=== PATIENT | male | born 1955 | race Caucasian/White ===

== ENCOUNTER 2017-05-25 08:25 | Observation (INO) | payer BC ==
[2017-05-25] MEDS ORDERED: Sodium Chloride 0.9% 1000 ML 1,000 ML IV STA (08:42)
--- NOTE | 2017-05-25 08:51 | ERPHSYRPT ---
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 He felt dizzines syesterday feeling like woozy feeling, no spinning. No headache. He has cough, fever, chills. BP was low yest and today as low as 70 at [employer] per nurse. He felt like he was going to pass out this AM and was confused and could not remember things so was brought to ER. Feels lightheaded when upright. Started feeling ill yesterday. ALL: PCN Social: smoker ILL: [place], [place], CABG 2001 Timing/Duration: yesterday Severity: moderate, severe Allergies/Adverse Reactions: Penicillins Allergy (Verified 05/25/17 08:52) Home Medications: Aspirin 1 tab DAILY 12/21/15 [History] Carvedilol 12.5 mg [Coreg 12.5 mg] 1 tab BID 12/21/15 [History] Clopidogrel Bisulfate 75 mg [PLAVIX 75 MG Tablet] 1 tab DAILY 12/21/15 [ History] Fenofibrate 67 mg HS 12/21/15 [History] Isosorbide Mononitrate [Isosorbide Mononitrate ER] 60 mg DAILY 12/21/15 [History ] Losartan/Hydrochlorothiazide [Losartan-Hctz 100-12.5 mg Tab] 1 each PO DAILY [History] Niacin 1 tab BID 12/21/15 [History] Dupo-3 Fatty Acids/Fish Oil [Fish Oil 1,000 mg Softgel] 1 ea BID 12/21/15 [ History] Simvastatin 40 mg DAILY 12/21/15 [History] Hx Influenza Vaccination/Date Given: No - Review of Systems Constitutional: Fever, Chills, Fatigue, Malaise, Weakness, Other (confusion) Eyes: No Symptoms Ears, Nose, & Throat: No Throat Pain Respiratory: Cough Cardiac: No Chest Pain Abdominal/Gastrointestinal: No Abdominal Pain, No Vomiting, No Diarrhea Genitourinary Symptoms: No Dysuria Skin: No Rash Neurological: No Headache All Other Systems: Reviewed and Negative - Past Medical History Pertinent Past Medical History: Yes Cardiac History: Coronary Artery Disease, Myocardial Infarction ([place]) GI Medical History: Hernia Other Medical History: cardiac stents back problems - Past Surgical History Cardiac: Angioplasty, CABG, Cardiac Stent Gastrointestinal: Hernia Repair Musculoskeletal: Orthopedic Surgery Other Surgical History: shoulder surgeery - Social History Smoking Status: Current every day smoker Exposure to second hand smoke: No Drug Use: none Patient Lives Alone: No - Nursing Vital Signs Nursing Vital Signs: Initial Vital Signs O2 Sat by Pulse Oximetry 97 05/25/17 08:56 Pain Scale Pain Intensity 0 - Physical Exam General Appearance: alert Eye Exam: PERRL/EOMI Ears, Nose, Throat Exam: normal ENT inspection, dry mucous membranes Neck Exam: normal inspection, non-tender, supple, No meningismus Respiratory Exam: rhonchi, wheezing Cardiovascular Exam: regular rate/rhythm, No murmur Gastrointestinal/Abdomen Exam: soft, No tenderness, No distention Back Exam: normal inspection Extremity Exam: normal inspection, normal range of motion Neurologic Exam: alert, oriented x 3, cooperative, 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 tested, normal mood/affect, nml cerebellar function, nml station & gait, sensation nml, other (no focal deficits), No motor deficits Skin Exam: warm, dry, No rash - Course Nursing assessment & vital signs reviewed: Yes EKG Interpreted by Me: RATE (76), Sinus Rhythm, NORMAL AXIS, Non-specific ST Changes - Radiology Exams cxr X-ray Interpretation: Teleradiologist Report (stable nonacute chest with chronic features) - CT Exams head CT Interpretation: Tele-radiologist Report (stable right basal ganglia remoate lacunar infarct, no new abnl, paranasal sinus disease) Ordered Tests: Active Orders 24 hr Category Date Time Status Enrollment Management Vice President STAT Care 05/25/17 08:42 Active Clean Catch Urine Specimen STAT Care 05/25/17 08:42 Active EKG-ER Only STAT Care 05/25/17 08:42 Active IV Insertion STAT Care 05/25/17 08:42 Active Orthostatic Vital Signs STAT Care 05/25/17 09:30 Active Pulse Oximetry (ED) STAT Care 05/25/17 08:42 Active CHEST 1 VIEW (PORTABLE) Stat Exams 05/25/17 08:42 Completed HEAD WITHOUT CONTRAST [CT] Stat Exams 05/25/17 08:44 Completed BLOOD CULTURE Stat Lab 05/25/17 08:59 Received CBC W DIFF Stat Lab 05/25/17 08:59 Completed CMP Stat Lab 05/25/17 08:59 Completed CULTURE,URINE Stat Lab 05/25/17 08:42 Ordered Glucose,Critical Care Urgent Lab 05/25/17 08:43 Completed Lactic Acid Stat Lab 05/25/17 08:42 Completed PROTIME WITH INR Stat Lab 05/25/17 08:59 Completed PTT Stat Lab 05/25/17 08:59 Completed TROPONIN Q3H Lab 05/25/17 08:59 Completed TROPONIN Q3H Lab 05/25/17 11:45 Ordered TROPONIN Q3H Lab 05/25/17 14:45 Ordered TROPONIN Q3H Lab 05/25/17 17:45 Ordered TROPONIN Q3H Lab 05/25/17 20:45 Ordered UA W/ MICROSCOPIC Stat Lab 05/25/17 08:42 Completed VENOUS BLOOD GAS Urgent Lab 05/25/17 08:43 Completed Respiratory Nebulizer STAT RT 05/25/17 09:04 Completed Respiratory Nebulizer STAT RT 05/25/17 10:27 Ordered Medication Summary Discontinued Medications Generic Name Dose Route Start Last Admin Trade Name Freq PRN Reason Stop Dose Admin Albuterol/Ipratropium 3 ml 05/25/17 09:04 05/25/17 09:15 Duoneb 0.5-3 Mg/3 Ml Neb IH 05/25/17 09:05 3 ml STAT ONE Administration Albuterol/Ipratropium Confirm 05/25/17 09:13 Duoneb 0.5-3 Mg/3 Ml Neb Administered 05/25/17 09:14 Dose 3 ml IH .STK-MED ONE Sodium Chloride 1,000 mls @ 999 mls/hr 05/25/17 08:42 05/25/17 09:13 Sodium Chloride 0.9% 1000 Ml IV 05/25/17 09:42 999 mls/hr .Q1H1M STA Administration Sodium Chloride Confirm 05/25/17 09:12 Sodium Chloride 0.9% 1000 Ml Administered 05/25/17 09:13 Dose 1,000 mls @ ud .ROUTE .STK-MED ONE Lab/Rad Data: Laboratory Result Diagrams 05/25/17 08:59 05/25/17 08:59 Laboratory Results 05/25/17 05/25/17 05/25/17 Range/Units 08:59 08:59 08:59 WBC (4.0-10.5) K/mm3 RBC (4.1-5.6) M/mm3 Hgb (12.5-18.0) gm/dl Hct (42-50) % MCV (78-100) fl MCH (26-32) pg MCHC (32-36) g/dl RDW (11.5-14.0) % Plt Count (150-450) K/mm3 MPV (6-9.5) fl Gran % (36.0-66.0) % Lymphocytes % (24.0-44.0) % Monocytes % (0.0-12.0) % Eosinophils % (0.00-5.0) % Basophils % (0.0-0.4) % Basophils # (0-0.4) INR 1.16 (0.8-3.0) APTT 33.4 (24.1-36.1) SECONDS VBG pH (7.32-7.42) VBG pCO2 at Pat Temp (42-55) mm/Hg VBG pO2 at Pat Temp (25-40) mm/Hg VBG HCO3 (22-28) meq/L VBG O2 Sat (Preet) (95-100) VBG Base Excess (-2.0-2.0) VBG Hemoglobin VBG Carboxyhemoglobin (0.0-6.9) % T HGB POC Potassium (3.5-5.1) Glucose (70-110) Sodium (136-145) mEq/L Potassium (3.5-5.1) mEq/L Chloride (98-107) mEq/L Carbon Dioxide (21-32) mEq/L Anion Gap (5-15) MEQ/L BUN (9-20) mg/dL Creatinine (0.55-1.30) mg/dl Estimated GFR ML/MIN Lactic Acid (0.4-2.0) Calcium (8.5-10.1) mg/dL Total Bilirubin (0.2-1.0) mg/dL AST (15-37) U/L ALT (12-78) U/L Alkaline Phosphatase (46-116) U/L Troponin I < 0.017 (0.000-0.056) ng/ml Serum Total Protein (6.4-8.2) gm/dL Albumin (3.4-5.0) g/dL Ur Collection Type Urine Color (YELLOW) Urine Appearance (CLEAR) Urine pH (5-6) Ur Specific [place] (1.005-1.025) Urine Protein (Negative) Urine Ketones (NEGATIVE) Urine Blood (0-5) Abdi/ul Urine Nitrite (NEGATIVE) Urine Bilirubin (NEGATIVE) Urine Urobilinogen (0-1) mg/dL Ur Leukocyte Esterase (NEGATIVE) Urine Microscopic RBC (0-2) /HPF Urine Microscopic WBC (0-5) /HPF Ur Epithelial Cells (FEW) /HPF Urine Bacteria (NEGATIVE) /HPF Urine Glucose (NEGATIVE) mg/dL Influenza Type A Ag POSITIVE (NEGATIVE) Influenza Type B Ag NEGATIVE (NEGATIVE) RSV (PCR) NEGATIVE (Negative) Specimen Received 05/25/17 05/25/17 05/25/17 Range/Units 08:59 08:59 08:43 WBC 5.7 (4.0-10.5) K/mm3 RBC 5.51 (4.1-5.6) M/mm3 Hgb 15.8 (12.5-18.0) gm/dl Hct 45.4 (42-50) % MCV 82.4 (78-100) fl MCH 28.7 (26-32) pg MCHC 34.8 (32-36) g/dl RDW 13.1 (11.5-14.0) % Plt Count 149 L (150-450) K/mm3 MPV 10.5 H (6-9.5) fl Gran % 74.3 H (36.0-66.0) % Lymphocytes % 13.0 L (24.0-44.0) % Monocytes % 11.7 (0.0-12.0) % Eosinophils % 0.5 (0.00-5.0) % Basophils % 0.5 (0.0-0.4) % Basophils # 0.03 (0-0.4) INR (0.8-3.0) APTT (24.1-36.1) SECONDS VBG pH 7.46 H (7.32-7.42) VBG pCO2 at Pat Temp 38 L (42-55) mm/Hg VBG pO2 at Pat Temp 46 H (25-40) mm/Hg VBG HCO3 27.0 (22-28) meq/L VBG O2 Sat (Preet) 89.5 L (95-100) VBG Base Excess 3.1 H (-2.0-2.0) VBG Hemoglobin 16.8 VBG Carboxyhemoglobin 4.8 (0.0-6.9) % T HGB POC Potassium 3.3 L (3.5-5.1) Glucose 168 H 178 H (70-110) Sodium 133 L (136-145) mEq/L Potassium 3.2 L (3.5-5.1) mEq/L Chloride 98 (98-107) mEq/L Carbon Dioxide 26.5 (21-32) mEq/L Anion Gap 11.5 (5-15) MEQ/L BUN 20 (9-20) mg/dL Creatinine 1.71 H (0.55-1.30) mg/dl Estimated GFR 43 ML/MIN Lactic Acid (0.4-2.0) Calcium 8.7 (8.5-10.1) mg/dL Total Bilirubin 0.50 (0.2-1.0) mg/dL AST 25 (15-37) U/L ALT 24 (12-78) U/L Alkaline Phosphatase 59 (46-116) U/L Troponin I (0.000-0.056) ng/ml Serum Total Protein 6.8 (6.4-8.2) gm/dL Albumin 3.2 L (3.4-5.0) g/dL Ur Collection Type Urine Color (YELLOW) Urine Appearance (CLEAR) Urine pH (5-6) Ur Specific [place] (1.005-1.025) Urine Protein (Negative) Urine Ketones (NEGATIVE) Urine Blood (0-5) Abdi/ul Urine Nitrite (NEGATIVE) Urine Bilirubin (NEGATIVE) Urine Urobilinogen (0-1) mg/dL Ur Leukocyte Esterase (NEGATIVE) Urine Microscopic RBC (0-2) /HPF Urine Microscopic WBC (0-5) /HPF Ur Epithelial Cells (FEW) /HPF Urine Bacteria (NEGATIVE) /HPF Urine Glucose (NEGATIVE) mg/dL Influenza Type A Ag (NEGATIVE) Influenza Type B Ag (NEGATIVE) RSV (PCR) (Negative) Specimen Received 05/25/17 05/25/17 Range/Units 08:42 08:42 WBC (4.0-10.5) K/mm3 RBC (4.1-5.6) M/mm3 Hgb (12.5-18.0) gm/dl Hct (42-50) % MCV (78-100) fl MCH (26-32) pg MCHC (32-36) g/dl RDW (11.5-14.0) % Plt Count (150-450) K/mm3 MPV (6-9.5) fl Gran % (36.0-66.0) % Lymphocytes % (24.0-44.0) % Monocytes % (0.0-12.0) % Eosinophils % (0.00-5.0) % Basophils % (0.0-0.4) % Basophils # (0-0.4) INR (0.8-3.0) APTT (24.1-36.1) SECONDS VBG pH (7.32-7.42) VBG pCO2 at Pat Temp (42-55) mm/Hg VBG pO2 at Pat Temp (25-40) mm/Hg VBG HCO3 (22-28) meq/L VBG O2 Sat (Preet) (95-100) VBG Base Excess (-2.0-2.0) VBG Hemoglobin VBG Carboxyhemoglobin (0.0-6.9) % T HGB POC Potassium (3.5-5.1) Glucose (70-110) Sodium (136-145) mEq/L Potassium (3.5-5.1) mEq/L Chloride (98-107) mEq/L Carbon Dioxide (21-32) mEq/L Anion Gap (5-15) MEQ/L BUN (9-20) mg/dL Creatinine (0.55-1.30) mg/dl Estimated GFR ML/MIN Lactic Acid 1.3 (0.4-2.0) Calcium (8.5-10.1) mg/dL Total Bilirubin (0.2-1.0) mg/dL AST (15-37) U/L ALT (12-78) U/L Alkaline Phosphatase (46-116) U/L Troponin I (0.000-0.056) ng/ml Serum Total Protein (6.4-8.2) gm/dL Albumin (3.4-5.0) g/dL Ur Collection Type CCMS Urine Color YELLOW (YELLOW) Urine Appearance CLEAR (CLEAR) Urine pH 5.0 (5-6) Ur Specific [place] 1.010 (1.005-1.025) Urine Protein TRACE (Negative) Urine Ketones NEGATIVE (NEGATIVE) Urine Blood 50 (0-5) Abdi/ul Urine Nitrite NEGATIVE (NEGATIVE) Urine Bilirubin NEGATIVE (NEGATIVE) Urine Urobilinogen NORMAL (0-1) mg/dL Ur Leukocyte Esterase TRACE (NEGATIVE) Urine Microscopic RBC 5-10 (0-2) /HPF Urine Microscopic WBC 0-2 (0-5) /HPF Ur Epithelial Cells MODERATE (FEW) /HPF Urine Bacteria FEW (NEGATIVE) /HPF Urine Glucose NEGATIVE (NEGATIVE) mg/dL Influenza Type A Ag (NEGATIVE) Influenza Type B Ag (NEGATIVE) RSV (PCR) (Negative) Specimen Received 05/25 1010 - Progress Progress Note: 05/25/17 10:28 Not orthostatic currently. He feels better afte rIVF bolus. Still wheezing on lung exam. Overwhelming sinus drng. Called Dr Mondragon and will place in obs for tamiflu, steroids, IVF. Counseled pt/family regarding: lab results, diagnosis, need for follow-up, rad results, smoking cessation - Departure Time of Disposition: 10:29 Departure Disposition: Observation Clinical Impression: Influenza A, Acute asthmatic bronchitis, Orthostasis, Type 2 diabetes mellitus Condition: Fair Critical Care Time: No Referrals: CYRIL MONDRAGON [Primary Care Provider] -
[2017-05-25 08:56] LABS: VBG BASE EXCESS 3.1 (-2.0-2.0); VBG CARBOXYHEMOGLOBIN 4.8 % T HGB (0.0-6.9); VBG HEMOGLOBIN 16.8; VBG O2 SATURATION 89.5 (95-100); VBG POTASSIUM 3.3 (3.5-5.1); VBG pH 7.46 (7.32-7.42)
[2017-05-25 09:00] LABS: BASOPHIL % 0.5 % (0.0-0.4); Eosinophil % 0.5 % (0.00-5.0); Granulocytes % 74.3 % (36.0-66.0); Mean Cell Volume 82.4 fl (78-100); Mean Corpuscular Hemoglobin 28.7 pg (26-32); Mean Platelet Volume 10.5 fl (6-9.5); Monocytes % 11.7 % (0.0-12.0); Platelet Count 149 K/mm3 (150-450); Red Blood Count 5.51 M/mm3 (4.1-5.6); Red Cell Distribution Width 13.1 % (11.5-14.0); White Blood Count 5.7 K/mm3 (4.0-10.5)
[2017-05-25] MEDS ORDERED: DUONEB 0.5-3 MG/3 ml Neb IH ONE ×2 (09:04→09:13)
[2017-05-25] MEDS ORDERED: Sodium Chloride 0.9% 1000 ML 1,000 ML ONE (09:12)
--- NOTE | 2017-05-25 09:18 | XRAY ---
Indication: Fever. Confusion. Comparison: July 04, 2011. Portable chest remains clear. Heart is not enlarged and again demonstrates previous CABG surgery. Descending aorta remains tortuous. Vascularity normal. Bony thorax intact again with mild degenerative changes. Impression: Stable nonacute chest with chronic features.
--- NOTE | 2017-05-25 09:19 | XRAY ---
Indication: Confusion and fever. Multiple contiguous axial images obtained through the head without contrast. Comparison: August 15, 2013. Ventriculosulcal pattern appears symmetric. Stable tiny right basal ganglia remote lacunar infarct. No acute intracranial hemorrhage, abnormal extra-axial fluid collection, or mass effect. Fourth ventricle is midline without hydrocephalus. Bony calvarium intact. There is now mild mucosal thickening of both ethmoid sinuses with small fluid leveling in the sphenoid sinuses. Mastoid air cells clear. Impression: 1. Stable right basal ganglia remote lacunar infarct. 2. No new/acute intracranial abnormalities. 3. Incidental paranasal sinus disease. CTDI 66.59
[2017-05-25 09:28] LABS: INR 1.16 (0.8-3.0); PROTIME 12.9 SECONDS (8.83-12.87)
[2017-05-25 09:31] LABS: PTT 33.4 SECONDS (24.1-36.1)
[2017-05-25 09:35] LABS: ALBUMIN 3.2 g/dL (3.4-5.0); ANION GAP 11.5 MEQ/L (5-15); BILIRUBIN,TOTAL 0.5 mg/dL (0.2-1.0); Carbon Dioxide 26.5 mEq/L (21-32); Potassium 3.2 mEq/L (3.5-5.1); Total Protein 6.8 gm/dL (6.4-8.2)
[2017-05-25 10:23] LABS: Bilirubin NEGATIVE (NEGATIVE); Blood 50 Ery/ul (0-5); Collection Type CCMS; Glucose NEGATIVE (NEGATIVE); Leukocyte Esterase TRACE (NEGATIVE)
[2017-05-25 10:24] LABS: Bacteria FEW /HPF (NEGATIVE); COMPLETE URINE MICROSCOPIC? YES; Epithelial Cells MODERATE /HPF (FEW); WBC 0-2 /HPF (0-5)
[2017-05-25] MEDS ORDERED: solu-MEDROL 125 MG IV ONE (10:26)
[2017-05-25] MEDS ORDERED: ROCEPHIN 1 Gm-D5w 50 ml Bag** 1 G/50 ML IVPB IV STA (10:26)
[2017-05-25] MEDS ORDERED: PROVENTIL 2.5 MG/3 ML NEB IH ONE ×2 (10:26→10:52)
[2017-05-25] MEDS ORDERED: Tamiflu 75MG Capsule PO ONE ×2 (10:28→10:35)
[2017-05-25] MEDS ORDERED: solu-MEDROL 125 MG ONE (10:33)
[2017-05-25] MEDS ORDERED: ROCEPHIN 1 Gm-D5w 50 ml Bag** 1 G/50 ML IVPB IV ONE (10:33)
[2017-05-25] MEDS ORDERED: NovoLOG Insulin SQ PRN (11:03)
[2017-05-25] MEDS ORDERED: DUONEB 0.5-3 MG/3 ml Neb IH SCH (11:03)
[2017-05-25] MEDS ORDERED: TYLENOL 325 MG PO PRN (11:03)
[2017-05-25] MEDS: Sodium Chloride 0.9% W/ 20 mEq KCl/LITER 1,000 ML IV SCH ×2 (12:38→22:48)
[2017-05-25] MEDS ORDERED: NORCO 7.5/325 MG TAB PO PRN (14:44)
[2017-05-25] MEDS ORDERED: Tussionex Pennkinetic Susp PO PRN (15:10)
[2017-05-25] MEDS: solu-MEDROL 125 MG IV SCH (17:20)
[2017-05-25] MEDS ORDERED: AFRIN NASAL SPRAY NS PRN (19:06)
--- NOTE | 2017-05-25 19:12 | PCM.HP ---
History of Present Illness - Chief Complaint Chief Complaint: Shortness of Breath History of Present Illness: is a 61 year old male pt of mine from [facility] who started coughing 2d ago , then had chills all that night. 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 He started getting "weirder than usual" per his co worker and was found to have a BP in the 80s systolic. He was brought to the ER where he was found to have + Influenza A. He was admitted for IV hydration and po tamiflu. His CXR was initially read as RML infiltrate, but the final reading was no acute findings per radiology. He did have CT head which showed sinus disease so he was started on Rocephin 1g IV daily. Currently he is having "a hot flash" but his main complaint is nasal congestion. - Review of Systems Constitutional: Fever, Chills, Fatigue, Lethargy Respiratory: Cough Abdominal/Gastrointestinal: Diarrhea (chronic) Musculoskeletal: Arthralgias Neurological: Other (altered mental status earlier today) Psychological: No Anxiety, No Depression, No Suicidal Ideations, No Homicidal Ideations All Other Systems: Reviewed and Negative Medications & Allergies Home Medications: Home Medication List Aspirin 1 tab DAILY 12/21/15 [History Confirmed 05/25/17] Carvedilol 12.5 mg [Coreg 12.5 mg] 1 tab BID 12/21/15 [History Confirmed 05/25/17] Clopidogrel Bisulfate 75 mg [PLAVIX 75 MG Tablet] 1 tab DAILY 12/21/15 [ History Confirmed 05/25/17] Fenofibrate 67 mg HS 12/21/15 [History Confirmed 05/25/17] Isosorbide Mononitrate [Isosorbide Mononitrate ER] 60 mg DAILY 12/21/15 [ History Confirmed 05/25/17] Losartan/Hydrochlorothiazide [Losartan-Hctz 100-12.5 mg Tab] 1 each PO DAILY [History Confirmed 05/25/17] Adams-3 Fatty Acids/Fish Oil [Fish Oil 1,000 mg Softgel] 1 ea BID 12/21/15 [ History Confirmed 05/25/17] Simvastatin 40 mg PO DAILY 12/21/15 [History Confirmed 05/25/17] Celecoxib [Celecoxib] 200 mg PO DAILY 05/25/17 [History Confirmed 05/25/17] Hydrocodone Bit/Acetaminophen [Hydrocodon-Acetaminoph 7.5-325] 1 each PO DAILY PRN PRN 05/25/17 [History Confirmed 05/25/17] Allergies/Adverse Reactions: Allergies Allergy/AdvReac Type Severity Reaction Status Date / Time Penicillins Allergy Verified 05/25/17 08:52 - Past Medical History Past Medical History: Yes Cardiac History: Coronary Artery Disease, Myocardial Infarction ([place]) Respiratory History: No Pertinent History Endocrine Medical History: Diabetes Type II GI Medical History: Hernia Comment: cardiac stents back problems - Past Surgical History Past Surgical History: Yes Cardiac History: Angioplasty, CABG, Cardiac Stent GI Surgical History: Hernia Repair Musculskeletal Surgical Hx: Orthopedic Surgery Other Surgical History: shoulder surgeery - Social History Smoking Status: Current every day smoker How long have you smoked: 47 years Exposure to second hand smoke: No Alcohol: Weekly Drug Use: none - Physical Exam Vital Signs: Vital Signs - 24 hr Temp Pulse Resp BP Pulse Ox 05/25/17 16:00 98.8 F 85 20 124/77 94 L 05/25/17 11:40 91 H 18 93 L 05/25/17 11:36 97.6 F 76 18 120/72 93 L 05/25/17 10:50 78 18 92 L 05/25/17 10:11 77 16 106/67 97 05/25/17 09:41 97.6 F 05/25/17 09:40 70 16 103/65 97 05/25/17 09:16 75 18 92 L 05/25/17 09:14 70 16 101/64 97 05/25/17 09:05 87 20 95/55 97 05/25/17 08:56 97 General Appearance: no apparent distress, alert Neurologic Exam: oriented x 3, cooperative Eye Exam: eyes nml inspection Ears, Nose, Throat Exam: moist mucous membranes Neck Exam: normal inspection, non-tender, No lymphadenopathy Respiratory Exam: diminished breath sounds (throughout), wheezing (expiratory, faint), No crackles/rales, No rhonchi Cardiovascular Exam: regular rate/rhythm, normal heart sounds, No murmur Gastrointestinal/Abdomen Exam: soft, No tenderness, No distention, No mass, No guarding, No rebound Back Exam: normal inspection, No rash Extremity Exam: normal inspection, No pedal edema, No swelling Skin Exam: normal color, warm, diaphoresis Results - Labs Lab/Micro Results: Accuchecks Date 05/25/17 Accucheck Value: 254 Accuchecks Date 05/25/17 Accucheck Value: 254 - Other Procedures and Tests Respiratory Therapy 05/25/17 11:43 Respiratory Nebulizer PRN Assessment/Plan (1) Influenza A Current Visit: Yes Status: Acute Assessment & Plan: On Tamiflu. on IV steroids and nebulizers for the wheezing. Code(s): J10.1 - FLU DUE TO OTH IDENT INFLUENZA VIRUS W OTH RESP MANIFEST (2) Altered mental state Current Visit: Yes Status: Resolved Qualifiers: Altered mental status type: disorientation Qualified Code(s): R41.0 - Disorientation, unspecified Assessment & Plan: resolved. Code(s): R41.82 - ALTERED MENTAL STATUS, UNSPECIFIED (3) Hypotension Current Visit: Yes Status: Acute Qualifiers: Hypotension type: other hypotension type Qualified Code(s): I95.89 - Other hypotension Assessment & Plan: Likely due to dehydration and being ill. Much improved, BP in the 120s systolic over the past 8 hours. If his BP stay stable overnight he may be able to d/c home tomorrow. Code(s): I95.9 - HYPOTENSION, UNSPECIFIED (4) Sinusitis Current Visit: Yes Status: Acute Qualifiers: Sinusitis location: maxillary Chronicity: acute Recurrence: not specified as recurrent Qualified Code(s): J01.00 - Acute maxillary sinusitis, unspecified Assessment & Plan: On IV rocephin day #1. 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 Code(s): I10 - ESSENTIAL (PRIMARY) HYPERTENSION
[2017-05-25] MEDS: COREG 12.5 MG PO SCH (21:36)
[2017-05-25] MEDS: Tamiflu 75MG Capsule PO SCH (21:36)
[2017-05-25] MEDS: NovoLOG Insulin SQ PRN (21:37)
[2017-05-26] MEDS: solu-MEDROL 125 MG IV SCH ×2 (00:12→05:42)
[2017-05-26 05:47] LABS: Granulocytes % 87.3 % (36.0-66.0); Lymphocytes % 9.3 % (24.0-44.0); Mean Cell Volume 82.5 fl (78-100); Mean Corpuscular Hemoglobin 28.9 pg (26-32); Mean Platelet Volume 10.6 fl (6-9.5); Monocytes % 3.4 % (0.0-12.0); Platelet Count 158 K/mm3 (150-450); Red Cell Distribution Width 13.1 % (11.5-14.0); White Blood Count 7.7 K/mm3 (4.0-10.5)
[2017-05-26 06:05] LABS: ANION GAP 9.2 MEQ/L (5-15); BLOOD UREA NITROGEN 16 mg/dL (9-20); CHLORIDE 105 mEq/L (98-107); Carbon Dioxide 28.1 mEq/L (21-32); Glucose 183 MG/DL (70-110); MAGNESIUM 1.5 mg/dL (1.8-2.4); Potassium 3.7 mEq/L (3.5-5.1); SODIUM 139 mEq/L (136-145)
[2017-05-26] MEDS ORDERED: AFRIN NASAL SPRAY NS PRN (07:15)
--- NOTE | 2017-05-26 08:44 | PCM.DS ---
Discharge Summary Date of Admission: 05/25/17 10:50 Admitting Physician: CYRIL DIAZ Primary Care Provider: CYRIL DIAZ Allergies Allergies Penicillins Allergy (Verified 05/25/17 08:52) Hospital Summary - Hospital Course Hospital Course: Pt was admitted for Influenza A, had some hypotension and disorientation at work. BP down to 70s systolic. He was admitted, given IV fluids, and treated with tamiflu and rocephin (for sinusitis). He is feeling much better this morning, BP up to the 150s systolic (bp meds were held yesterday). He does complain that he didn't sleep last night and he notes he's been having a fairly persistent erection but denies any discomfort with that. - Vitals & Intake/Output Vital Signs: Vital Signs Temperature 97.5 F 05/26/17 07:18 Pulse Rate 80 05/26/17 07:30 Respiratory Rate 16 05/26/17 07:30 Blood Pressure 145/83 05/26/17 07:18 O2 Sat by Pulse Oximetry 91 L 05/26/17 07:30 Intake & Output: Intake & Output 05/23/17 05/24/17 05/25/17 05/26/17 11:59 11:59 11:59 11:59 Intake Total 2748 Balance 2748 Weight 87.657 kg - Lab Result Diagrams: 05/26/17 05:25 05/26/17 05:25 Lab Results-Last 24 Hrs: Accuchecks Date 05/25/17 Date 05/25/17 Time 21:30 Accucheck Value: 166 Accucheck Value: 205 Accucheck Value: 254 Lab Results-Last 24 Hours 05/26/17 05/26/17 Range/Units 05:25 05:25 WBC 7.7 (4.0-10.5) K/mm3 RBC 5.60 (4.1-5.6) M/mm3 Hgb 16.2 (12.5-18.0) gm/dl Hct 46.2 (42-50) % MCV 82.5 (78-100) fl MCH 28.9 (26-32) pg MCHC 35.1 (32-36) g/dl RDW 13.1 (11.5-14.0) % Plt Count 158 (150-450) K/mm3 MPV 10.6 H (6-9.5) fl Gran % 87.3 H (36.0-66.0) % Lymphocytes % 9.3 L (24.0-44.0) % Monocytes % 3.4 (0.0-12.0) % Eosinophils % 0.0 (0.00-5.0) % Basophils % 0.0 (0.0-0.4) % Basophils # 0 (0-0.4) Sodium 139 (136-145) mEq/L Potassium 3.7 (3.5-5.1) mEq/L Chloride 105 (98-107) mEq/L Carbon Dioxide 28.1 (21-32) mEq/L Anion Gap 9.2 (5-15) MEQ/L BUN 16 (9-20) mg/dL Creatinine 1.01 (0.55-1.30) mg/dl Estimated GFR > 60 ML/MIN Glucose 183 H (70-110) MG/DL Calcium 8.5 (8.5-10.1) mg/dL Magnesium 1.5 L (1.8-2.4) mg/dL Micro Results-Entire Visit: Accuchecks Date 05/25/17 Date 05/25/17 Time 21:30 Accucheck Value: 166 Accucheck Value: 205 Accucheck Value: 254 - Procedures and Test Procedures and Tests throughout Hospitalization: Therapy Orders & Screens 05/25/17 11:43 Respiratory Nebulizer PRN Comment: Diagnosis: Shortness of Breath 05/25/17 11:54 Smoking Cessation Education Comment: Diagnosis: Shortness of Breath Smoking Status: Current every day smoker How long have you smoked: 47 years Have you smoked in the past 12 months: Yes Do you dip or chew tobacco: No Discharge Exam General Appearance: no apparent distress, alert Neurologic Exam: oriented x 3, cooperative Skin Exam: normal color, warm, dry Eye Exam: eyes nml inspection Ears, Nose, Throat Exam: moist mucous membranes Neck Exam: normal inspection Respiratory Exam: normal breath sounds, lungs clear, No crackles/rales, No rhonchi, No wheezing Cardiovascular Exam: regular rate/rhythm, normal heart sounds, No murmur Final Diagnosis/Problem List - Final Discharge Diagnosis/Problem (1) Influenza A Current Visit: Yes Status: Acute Assessment & Plan: On Tamiflu. Improved. Also on IV steroids; will stop those and start po steroids. As long as he is doing well on the po steroids ok to d/c home after supper. Return to work Thursday. (2) Altered mental state Current Visit: Yes Status: Resolved (3) Hypotension Current Visit: Yes Status: Resolved (4) Sinusitis Current Visit: Yes Status: Acute Assessment & Plan: home on po omnicef. (5) Type 2 diabetes mellitus Current Visit: Yes Status: Chronic (6) HTN (hypertension) Current Visit: Yes Status: Chronic (7) Priapism Current Visit: Yes Status: Acute Assessment & Plan: could be related to the Afrin nasal spray - will do u/s to check for ischemic priapism. Would need to see this resolved before discharge. - Discharge Disposition: Home, Self-Care Condition: Fair Prescriptions: New Prednisone 20 mg [Deltasone 20 mg] 20 mg PO DAILY #17 tablet Cefdinir 300 mg [Omnicef 300 mg] 300 mg PO BID #16 capsule Oseltamivir 75 mg [Tamiflu 75MG Capsule] 75 mg PO BID #7 cap Continue Aspirin 1 tab DAILY Carvedilol 12.5 mg [Coreg 12.5 mg] 1 tab BID Fenofibrate 67 mg HS Losartan/Hydrochlorothiazide [Losartan-Hctz 100-12.5 mg Tab] 1 each PO DAILY Isosorbide Mononitrate [Isosorbide Mononitrate ER] 60 mg DAILY Simvastatin 40 mg PO DAILY [employer]-3 Fatty Acids/Fish Oil [Fish Oil 1,000 mg Softgel] 1 ea BID Clopidogrel Bisulfate 75 mg [PLAVIX 75 MG Tablet] 1 tab DAILY Celecoxib 200 mg PO DAILY Hydrocodone Bit/Acetaminophen [Hydrocodon-Acetaminoph 7.5-325] 1 each PO DAILY PRN PRN PRN Reason: Pain Follow up with: CYRIL DIAZ [Primary Care Provider] -
[2017-05-26] MEDS ORDERED: ROCEPHIN 1 Gm-D5w 50 ml Bag** 1 G/50 ML IVPB IV SCH (10:00)
[2017-05-26] MEDS ORDERED: ISOSORBIDE MONONITRATE 60 MG PO SCH (10:00)
[2017-05-26] MEDS ORDERED: ECOTRIN 81 MG PO SCH (10:00)
[2017-05-26] MEDS ORDERED: Imdur 60MG PO SCH (10:00)
[2017-05-26] MEDS ORDERED: DELTASONE 20 MG PO SCH (10:00)
[2017-05-26] MEDS ORDERED: Cozaar 50 MG PO SCH (10:00)
[2017-05-26] MEDS ORDERED: ASPIRIN PO SCH (10:00)
[2017-05-26] MEDS ORDERED: NON-FORMULARY ITEM (Losartan/Hydrochlorothiazide [Losartan-Hctz 100-12.5 Mg Tab] 1 EACH) PO SCH (10:00)
[2017-05-26] MEDS ORDERED: PLAVIX 75 MG Tablet PO SCH (10:00)
[2017-05-26] MEDS ORDERED: hydroDIURIL 25 MG PO SCH (10:00)
[2017-05-26] MEDS: COREG 12.5 MG PO SCH (10:25)
[2017-05-26] MEDS: Tamiflu 75MG Capsule PO SCH (10:25)
[2017-05-26 11:33] VITALS: BP 143/81; PULSE 76; O2SAT 92
[2017-05-26] MEDS: NovoLOG Insulin SQ PRN (11:51)
[2017-05-26] MEDS ORDERED: ZOCOR 20MG PO SCH (22:00)
== END 2017-05-26 15:15 | disposition home or self-care (01) ==
LOC: ED 08:25 → MED SURG 10:50
PROVIDERS: ADMIT Family Medicine; ATTEND Family Medicine
DX: J10.1 Influenza due to other identified influenza virus with other respiratory manifestations (principal); R41.82 Altered mental status, unspecified; I95.9 Hypotension, unspecified; J32.9 Chronic sinusitis, unspecified; I10 Essential (primary) hypertension; N48.30 Priapism, unspecified; I25.810 Atherosclerosis of coronary artery bypass graft(s) without angina pectoris; I25.2 Old myocardial infarction; E11.9 Type 2 diabetes mellitus without complications; Z79.899 Other long term (current) drug therapy; Z72.0 Tobacco use
CPT/HCPCS: 36000; 36415; 70450; 71010; 80048; 80053; 81000; 82805; 82947; 82962; 83036; 83605; 83735; 84484; 85025; 85610; 85730; 87040; 87086; 87631; 93005; 93041; 94640; 94760; 96360; 96365; 96374; 99285; G0378; J0696; J2930; A9270-GY

== ENCOUNTER 2018-03-18 08:06 | Day surgery (SDC) | payer BC ==
[~2018-03-18 08:06] MED LIST: CLINDAMYCIN-D5W 900 MG/50 ML*** 900 MG/50 ML BAG IV SCH; Lactated Ringers 1,000 ML IV ONE; Lactated Ringers 1,000 ML IV SCH; Sensorcaine 0.25% 10 ML ONE
[2018-03-18] MEDS ORDERED: DIPRIVAN 200 MG/20 ML IV ONE (08:07)
[2018-03-18] MEDS ORDERED: Versed 2 MG/2 ML Injection IV ONE (08:07)
[2018-03-18] MEDS ORDERED: ROBINUL IV ONE (08:07)
[2018-03-18] MEDS ORDERED: Quelicin Fliptop 200 MG/10 ML IV ONE (08:07)
[2018-03-18] MEDS ORDERED: Zemuron 100 MG/10 ML IV ONE (08:07)
[2018-03-18] MEDS ORDERED: SUBLIMAZE 250 MCG/5 ML IV ONE (08:07)
[2018-03-18] MEDS ORDERED: MORPHINE SULFATE 10 MG/ML ONE (11:49)
--- NOTE | 2018-03-18 12:55 | OP ---
SURGERY DATE/TIME: 03/18/2018 1045 PREOPERATIVE DIAGNOSIS: Symptomatic umbilical hernia. POSTOPERATIVE DIAGNOSIS: Symptomatic umbilical hernia. PROCEDURE: Primary umbilical herniorrhaphy. SURGEON: Partha Jean-Baptiste M.D. ANESTHESIA: General. COMPLICATIONS: None. CONDITION: Stable. INDICATION: The patient with symptomatic umbilical hernia. DESCRIPTION OF PROCEDURE: Taken to surgery. Routine prep and drape. Transverse incision, 1 cm defect this was freed. Four sutures #0 Prolene were placed and tied in an inversion-like fashion. [id number] 0 Vicryl. Skin closed with 4-0 Vicryl, sterile glue applied. The patient tolerated the procedure satisfactorily.
[2018-03-18 13:21] VITALS: PULSE 59; O2SAT 93
[2018-03-18 13:24] VITALS: BP 127/80
== END 2018-03-18 13:30 | disposition home or self-care (01) ==
LOC: SDC 08:06
PROVIDERS: ATTEND Surgery
DX: K42.9 Umbilical hernia without obstruction or gangrene (principal); I10 Essential (primary) hypertension; E11.9 Type 2 diabetes mellitus without complications; I25.2 Old myocardial infarction; Z95.1 Presence of aortocoronary bypass graft; Z79.4 Long term (current) use of insulin; Z79.899 Other long term (current) drug therapy
CPT/HCPCS: 82962; 94250; J0330; J2250; J2270; J2704; J3010

== ENCOUNTER 2018-10-31 21:24 | Emergency (ER) | payer BC ==
--- NOTE | 2018-10-31 22:12 | ERPHSYRPT ---
- History of Present Illness Time Seen by Provider: 10/31/18 22:09 Historian: patient, family Exam Limitations: no limitations Physician History: left flank and back pain today hx back surgery as well as RI x 3 and CABG no CP or sobreath but pain is shooting down left leg ; no neuro deficit abd is diffusly tender no trauma; Timing/Duration: today Activities at Onset: none Quality: sharpness, stabbing Abdominal Pain Onset Location: generalized abdomen, flank Pain Radiation: flank, groin, back Severity of Pain-Max: moderate Severity of Pain-Current: moderate Modifying Factors: Improves With: movement, vomiting Associated Symptoms: back, nausea, vomiting Previous symptoms: different symptoms, no recent treatment Allergies/Adverse Reactions: Penicillins Allergy (Mild, Verified 10/31/18 22:13) Itching Home Medications: Aspirin 1 tab PO DAILY 12/21/15 [History] Carvedilol 12.5 mg [Coreg 12.5 mg] 1 tab PO DAILY 12/21/15 [History] Clopidogrel Bisulfate 75 mg [PLAVIX 75 MG Tablet] 1 tab PO DAILY 12/21/15 [History] Fenofibrate 67 mg PO HS 12/21/15 [History] Isosorbide Mononitrate [Isosorbide Mononitrate ER] 60 mg PO DAILY 12/21/15 [ History] Losartan/Hydrochlorothiazide [Losartan-Hctz 100-12.5 mg Tab] 1 each PO DAILY [History] [place]-3 Fatty Acids/Fish Oil [Fish Oil 1,000 mg Softgel] 1 ea BID 12/21/15 [ History] Celecoxib 200 mg PO DAILY 05/25/17 [History] Amlodipine Besylate 5 mg [Norvasc 5 mg] 5 mg PO HS 02/26/18 [History] Atorvastatin Calcium [Lipitor] 80 mg PO HS 02/26/18 [History] Metformin HCl 500 mg [Glucophage 500 MG] 250 mg PO BID 02/26/18 [History] Niacin [Niaspan] 1,000 mg PO BID 02/26/18 [History] Nitroglycerin 0.4 mg (Ed) [Nitrostat 0.4 MG (ED)] 0.4 mg SL UD 02/26/18 [ History] Hx Influenza Vaccination/Date Given: No - Review of Systems Constitutional: No Fever, No Chills Eyes: No Symptoms Ears, Nose, & Throat: No Symptoms Respiratory: No Cough, No Dyspnea Cardiac: No Chest Pain, No Edema, No Syncope Abdominal/Gastrointestinal: Abdominal Pain, Nausea, Vomiting, No Diarrhea Genitourinary Symptoms: No Dysuria Musculoskeletal: Back Pain, No Neck Pain Skin: No Rash Neurological: No Dizziness, No Focal Weakness, No Sensory Changes Psychological: No Symptoms Endocrine: No Symptoms All Other Systems: Reviewed and Negative - Past Medical History Pertinent Past Medical History: Yes Neurological History: No Pertinent History ENT History: No Pertinent History Cardiac History: Coronary Artery Disease, High Cholesterol, Hypertension, Myocardial Infarction ([place]) Respiratory History: No Pertinent History Endocrine Medical History: Diabetes Type II Musculoskeletal History: Other GI Medical History: Hernia History: No Pertinent History Psycho-Social History: No Pertinent History Male Reproductive Disorders: No Pertinent History Other Medical History: cardiac stents. back problems- herniated disc - Past Surgical History Past Surgical History: Yes Neuro Surgical History: No Pertinent History Cardiac: Angioplasty, CABG, Cardiac Stent Respiratory: No Pertinent History Gastrointestinal: Hernia Repair Genitourinary: No Pertinent History Musculoskeletal: Orthopedic Surgery Male Surgical History: No Pertinent History Other Surgical History: right shoulder surgery. cyst removed from right shoulder - Social History Smoking Status: Current every day smoker How long have you smoked: 47 years Exposure to second hand smoke: No Drug Use: none Patient Lives Alone: No - Nursing Vital Signs Nursing Vital Signs: Initial Vital Signs Temperature 100.8 F 10/31/18 21:59 Pulse Rate 80 10/31/18 21:59 Respiratory Rate 20 10/31/18 21:59 Blood Pressure 155/98 10/31/18 21:59 O2 Sat by Pulse Oximetry 94 L 10/31/18 21:59 Pain Scale Pain Intensity 10 - Physical Exam General Appearance: no apparent distress, alert Eye Exam: PERRL/EOMI, eyes nml inspection Ears, Nose, Throat Exam: normal ENT inspection, pharynx normal, moist mucous membranes Neck Exam: normal inspection, non-tender, supple, full range of motion Respiratory Exam: normal breath sounds, lungs clear, No respiratory distress Cardiovascular Exam: regular rate/rhythm, normal heart sounds Gastrointestinal/Abdomen Exam: soft, tenderness, guarding, No mass, No pulsatile mass, No rebound Rectal Exam: deferred Back Exam: normal inspection, normal range of motion, No CVA tenderness, No vertebral tenderness Extremity Exam: normal inspection, normal range of motion, pelvis stable Neurologic Exam: alert, oriented x 3, cooperative, normal mood/affect, nml cerebellar function, sensation nml, No motor deficits Skin Exam: normal color, warm, dry - Course Nursing assessment & vital signs reviewed: Yes - CT Exams Abdomen/Pelvis CT Interpretation: No appendicitis, Other (DDD Lumbar ) Ordered Tests: Active Orders 24 hr Category Date Time Status EKG-ER Only STAT Care 10/31/18 22:13 Active IV Insertion STAT Care 10/31/18 22:13 Active ABDOMEN AND PELVIS W/0 CONTRAS [CT] Stat Exams 10/31/18 22:12 Taken AMYLASE Stat Lab 10/31/18 22:28 Completed CBC W DIFF Stat Lab 10/31/18 22:28 Completed CMP Stat Lab 10/31/18 22:28 Completed CULTURE,URINE Stat Lab 10/31/18 23:39 Received LIPASE Stat Lab 10/31/18 22:28 Completed Lactic Acid Stat Lab 10/31/18 22:20 Completed TROPONIN Q3H Lab 10/31/18 22:28 Completed TROPONIN Q3H Lab 11/01/18 01:15 Ordered TROPONIN Q3H Lab 11/01/18 04:15 Ordered TROPONIN Q3H Lab 11/01/18 07:15 Ordered TROPONIN Q3H Lab 11/01/18 10:15 Ordered UA W/RFX UR CULTURE Stat Lab 10/31/18 23:39 Completed Medication Summary Generic Name Dose Route Start Last Admin Trade Name Freq PRN Reason Stop Dose Admin Sodium Chloride 1,000 mls @ 100 mls/hr 10/31/18 22:15 10/31/18 22:23 Sodium Chloride 0.9% 1000 Ml IV 11/30/18 22:14 100 mls/hr .Q10H NEETA Administration Discontinued Medications Generic Name Dose Route Start Last Admin Trade Name Freq PRN Reason Stop Dose Admin Hydromorphone HCl 1 mg 10/31/18 22:13 10/31/18 22:22 Hydromorphone 1 Mg/Ml Ampule IV 10/31/18 22:14 1 mg STAT ONE Administration Hydromorphone HCl Confirm 10/31/18 22:20 Hydromorphone 1 Mg/Ml Ampule Administered 10/31/18 22:21 Dose 1 mg .ROUTE .STK-MED ONE Hydromorphone HCl 1 mg 11/01/18 00:00 11/01/18 00:04 Hydromorphone 1 Mg/Ml Ampule IV 11/01/18 00:01 1 mg STAT ONE Administration Hydromorphone HCl Confirm 11/01/18 00:03 Hydromorphone 1 Mg/Ml Ampule Administered 11/01/18 00:04 Dose 1 mg .ROUTE .STK-MED ONE Ondansetron HCl 4 mg 10/31/18 22:13 10/31/18 22:22 Zofran 4 Mg/2 Ml Vial IV 10/31/18 22:14 4 mg STAT ONE Administration Ondansetron HCl Confirm 10/31/18 22:20 Zofran 4 Mg/2 Ml Vial Administered 10/31/18 22:21 Dose 4 mg .ROUTE .STK-MED ONE Lab/Rad Data: Laboratory Result Diagrams 10/31/18 22:28 10/31/18 22:28 Laboratory Results 10/31/18 10/31/18 10/31/18 Range/Units 23:39 22:28 22:28 WBC (4.0-10.5) K/mm3 RBC (4.1-5.6) M/mm3 Hgb (12.5-18.0) gm/dl Hct (42-50) % MCV (78-100) fl MCH (26-32) pg MCHC (32-36) g/dl RDW (11.5-14.0) % Plt Count (150-450) K/mm3 MPV (6-9.5) fl Gran % (36.0-66.0) % Eos # (Auto) (0-0.5) Absolute Lymphs (auto) (1.0-4.6) Absolute Monos (auto) (0.0-1.3) Lymphocytes % (24.0-44.0) % Monocytes % (0.0-12.0) % Eosinophils % (0.00-5.0) % Basophils % (0.0-0.4) % Absolute Granulocytes (1.4-6.9) Basophils # (0-0.4) Sodium 136 L (137-145) mmol/L Potassium 3.8 (3.5-5.1) mmol/L Chloride 98 (98-107) mmol/L Carbon Dioxide 24 (22-30) mmol/L Anion Gap 17.8 H (5-15) MEQ/L BUN 12 (9-20) mg/dL Creatinine 0.64 L (0.66-1.25) mg/dL Estimated GFR > 60.0 ML/MIN Glucose 110 H (74-106) mg/dL Lactic Acid (0.4-2.0) Calcium 9.8 (8.4-10.2) mg/dL Total Bilirubin 1.30 (0.2-1.3) mg/dL AST 18 (17-59) U/L ALT 15 (0-50) U/L Alkaline Phosphatase 62 (38-126) U/L Troponin I < 0.012 (0.000-0.034) ng/mL Serum Total Protein 7.5 (6.3-8.2) g/dL Albumin 4.2 (3.5-5.0) g/dL Amylase 39 (30-110) U/L Lipase 66 (23-300) U/L Urine Color YELLOW (YELLOW) Urine Appearance CLEAR (CLEAR) Urine pH 5.0 (5-6) Ur Specific [place] 1.021 (1.005-1.025) Urine Protein 30 (Negative) Urine Ketones NEGATIVE (NEGATIVE) Urine Blood SMALL (0-5) Abdi/ul Urine Nitrite NEGATIVE (NEGATIVE) Urine Bilirubin NEGATIVE (NEGATIVE) Urine Urobilinogen NEGATIVE (0-1) mg/dL Ur Leukocyte Esterase NEGATIVE (NEGATIVE) Urine WBC (Auto) NONE (0-5) /HPF Urine RBC (Auto) 3-5 (0-2) /HPF U Hyaline Cast (Auto) 0-2 (0-2) /LPF U Epithel Cells (Auto) NONE (FEW) /HPF Urine Bacteria (Auto) NONE (NEGATIVE) /HPF Urine Mucus (Auto) SLIGHT (NEGATIVE) /HPF Urine Culture Reflexed YES (NO) Urine Glucose 150 (NEGATIVE) mg/dL 10/31/18 10/31/18 Range/Units 22:28 22:20 WBC 11.6 H (4.0-10.5) K/mm3 RBC 5.70 H (4.1-5.6) M/mm3 Hgb 16.7 (12.5-18.0) gm/dl Hct 46.7 (42-50) % MCV 81.9 (78-100) fl MCH 29.2 (26-32) pg MCHC 35.8 (32-36) g/dl RDW 14.3 H (11.5-14.0) % Plt Count 222 (150-450) K/mm3 MPV 10.7 H (6-9.5) fl Gran % 72.1 H (36.0-66.0) % Eos # (Auto) 0.10 (0-0.5) Absolute Lymphs (auto) 1.88 (1.0-4.6) Absolute Monos (auto) 1.23 (0.0-1.3) Lymphocytes % 16.2 L (24.0-44.0) % Monocytes % 10.6 (0.0-12.0) % Eosinophils % 0.9 (0.00-5.0) % Basophils % 0.2 (0.0-0.4) % Absolute Granulocytes 8.37 H (1.4-6.9) Basophils # 0.02 (0-0.4) Sodium (137-145) mmol/L Potassium (3.5-5.1) mmol/L Chloride (98-107) mmol/L Carbon Dioxide (22-30) mmol/L Anion Gap (5-15) MEQ/L BUN (9-20) mg/dL Creatinine (0.66-1.25) mg/dL Estimated GFR ML/MIN Glucose (74-106) mg/dL Lactic Acid 1.2 (0.4-2.0) Calcium (8.4-10.2) mg/dL Total Bilirubin (0.2-1.3) mg/dL AST (17-59) U/L ALT (0-50) U/L Alkaline Phosphatase (38-126) U/L Troponin I (0.000-0.034) ng/mL Serum Total Protein (6.3-8.2) g/dL Albumin (3.5-5.0) g/dL Amylase (30-110) U/L Lipase (23-300) U/L Urine Color (YELLOW) Urine Appearance (CLEAR) Urine pH (5-6) Ur Specific [place] (1.005-1.025) Urine Protein (Negative) Urine Ketones (NEGATIVE) Urine Blood (0-5) Abdi/ul Urine Nitrite (NEGATIVE) Urine Bilirubin (NEGATIVE) Urine Urobilinogen (0-1) mg/dL Ur Leukocyte Esterase (NEGATIVE) Urine WBC (Auto) (0-5) /HPF Urine RBC (Auto) (0-2) /HPF U Hyaline Cast (Auto) (0-2) /LPF U Epithel Cells (Auto) (FEW) /HPF Urine Bacteria (Auto) (NEGATIVE) /HPF Urine Mucus (Auto) (NEGATIVE) /HPF Urine Culture Reflexed (NO) Urine Glucose (NEGATIVE) mg/dL - Progress Progress: improved, re-examined Progress Note: 11/01/18 00:57 improved after treatment. Counseled pt/family regarding: lab results, diagnosis, need for follow-up, rad results - Departure Departure Disposition: Home Clinical Impression: Degenerative disc disease, lumbar, Hematuria Condition: Good Critical Care Time: No Referrals: CYRIL DIAZ [Primary Care Provider] - Instructions: Low Back Pain (DC), Sciatica (DC), Degenerative Disc Disease (DC ), Blood in the Urine (Hematuria) in Adults Additional Instructions: recheck your blood pressure and kidneys ( slight blood in urine)with your DrDelmer and to consider MRI and various treatments for your back; return meantime if any concenrs or other symptoms. Prescriptions: Tizanidine HCl 4 mg [Zanaflex 4 MG] 4 mg PO TID PRN PRN #14 tablet PRN Reason: Pain
[2018-10-31] MEDS ORDERED: Hydromorphone 1 mg/ml Ampule IV ONE (22:13)
[2018-10-31] MEDS ORDERED: Zofran 4 MG/2 ML VIAL IV ONE (22:13)
[2018-10-31] MEDS ORDERED: Sodium Chloride 0.9% 1000 ML 1,000 ML IV SCH (22:15)
[2018-10-31] MEDS ORDERED: Zofran 4 MG/2 ML VIAL ONE (22:20)
[2018-10-31] MEDS ORDERED: Sodium Chloride 0.9% 1000 ML 1,000 ML ONE (22:20)
[2018-10-31] MEDS ORDERED: Hydromorphone 1 mg/ml Ampule ONE (22:20)
[2018-10-31 22:33] LABS: BASOPHIL % 0.2 % (0.0-0.4); Basophil (Absolute #) 0.02 (0-0.4); Eosinophil % 0.9 % (0.00-5.0); Granulocyte Absolute (ANC) 8.37 (1.4-6.9); Granulocytes % 72.1 % (36.0-66.0); Hematocrit 46.7 % (42-50); Hemoglobin 16.7 gm/dl (12.5-18.0); Lymphocyte (Absolute #) 1.88 (1.0-4.6); Lymphocytes % 16.2 % (24.0-44.0); Mean Cell Volume 81.9 fl (78-100); Mean Corpuscular Hgb Concent. 35.8 g/dl (32-36); Mean Platelet Volume 10.7 fl (6-9.5); Monocyte (Absolute #) 1.23 (0.0-1.3); Monocytes % 10.6 % (0.0-12.0); Platelet Count 222 K/mm3 (150-450); Red Cell Distribution Width 14.3 % (11.5-14.0); White Blood Count 11.6 K/mm3 (4.0-10.5)
[2018-10-31 22:44] LABS: Mean Corpuscular Hemoglobin 29.2 pg (26-32)
[2018-10-31 22:49] LABS: ALBUMIN 4.2 g/dL (3.5-5.0); AMYLASE 39 U/L (30-110); BLOOD UREA NITROGEN 12 mg/dL (9-20); CHLORIDE 98 mmol/L (98-107); Calcium 9.8 mg/dL (8.4-10.2); Carbon Dioxide 24 mmol/L (22-30); Creatinine 1 0.64 mg/dL (0.66-1.25); Glucose 110 mg/dL (74-106); SGOT/AST 18 U/L (17-59); SGPT/ALT 15 U/L (0-50); SODIUM 136 mmol/L (137-145); Total Protein 7.5 g/dL (6.3-8.2)
[2018-10-31 22:50] LABS: ALKALINE PHOSPHATASE 62 U/L (38-126); LIPASE 66 U/L (23-300)
[2018-10-31 23:25] LABS: Potassium 3.8 mmol/L (3.5-5.1)
[2018-10-31 23:26] LABS: ANION GAP 17.8 MEQ/L (5-15)
[2018-10-31 23:49] LABS: Appearance CLEAR (CLEAR); Bilirubin NEGATIVE (NEGATIVE); Blood SMALL Ery/ul (0-5); Glucose 150 mg/dL (NEGATIVE); Hyaline Casts 0-2 /LPF (0-2); Ketones NEGATIVE (NEGATIVE); Leukocyte Esterase NEGATIVE (NEGATIVE); Mucus SLIGHT /HPF (NEGATIVE); Nitrite NEGATIVE (NEGATIVE); Protein,Urine Dip 30 (Negative); Specific Gravity 1.021 (1.005-1.025); Urobilinogen NEGATIVE mg/dL (0-1)
[2018-11-01] MEDS ORDERED: Hydromorphone 1 mg/ml Ampule IV ONE
[2018-11-01] MEDS ORDERED: Hydromorphone 1 mg/ml Ampule ONE (00:03)
[2018-11-01] MEDS ORDERED: Zanaflex 4 MG PO ONE (01:05)
[2018-11-01 01:50] VITALS: BP 125/81; PULSE 89; O2SAT 96
--- NOTE | 2018-11-01 08:07 | XRAY ---
Indication: Left flank pain. Multiple contiguous axial images obtained through the abdomen and pelvis without contrast as ordered. Comparison: October 20, 2017. Lung bases again demonstrates minimal bibasilar fibrosis/scarring. No infiltrate or effusion. Heart is not enlarged. Noncontrasted stomach and bowel loops appear nonobstructed. Normal appendix. Stable minimal nonspecific bilateral perinephric stranding. No free fluid/air. Remaining liver, gallbladder, pancreas, spleen, adrenal glands, kidneys, ureters, and bladder appear unremarkable for noncontrast exam. There remains moderate scattered aortoiliac calcifications with distal aortic ectasia. Osseous structures intact again with mild degenerative changes throughout the spine.. No ventral or inguinal hernias. Impression: 1. Stable nonspecific bilateral perinephric stranding and scattered arteriosclerotic disease. 2. Remaining CT abdomen/pelvis without contrast exam is negative. Comment: Preliminary interpretation was made by [facility]. No discrepancy. CTDI 22.26
== END 2018-11-01 01:57 | disposition home or self-care (01) ==
LOC: ED 21:24
DX: M51.36 Other intervertebral disc degeneration, lumbar region (principal); M54.30 Sciatica, unspecified side; R31.9 Hematuria, unspecified; I25.2 Old myocardial infarction; Z95.1 Presence of aortocoronary bypass graft; E11.9 Type 2 diabetes mellitus without complications; Z79.4 Long term (current) use of insulin
CPT/HCPCS: 36000; 36415; 74176; 80053; 81001; 82150; 83605; 83690; 84484; 85025; 87086; 93005; 96360; 96361; 96374; 96375; 96376; 99285; J1170; J2405; A9270-GY

== ENCOUNTER 2018-11-20 15:02 | Emergency (ER) | payer BC ==
[2018-11-20] MEDS ORDERED: Zofran 4 MG/2 ML VIAL IV ONE (15:21)
[2018-11-20] MEDS ORDERED: Nitrostat 0.4 MG (ED) SL ONE ×4 (15:21→19:54)
[2018-11-20] MEDS ORDERED: MORPHINE SULFATE 2 MG INJ IV ONE (15:21)
--- NOTE | 2018-11-20 15:21 | ERPHSYRPT ---
- History of Present Illness Time Seen by Provider: 11/20/18 15:15 Historian: patient Exam Limitations: no limitations Physician History: 63 y/o diabetic white male with h/o htn and mi in past presents with approx 3 hour h/o substernal cp with radiation to right upper ext. pt is off his plavix and asa, and does not want any at this time, due to him having a back procedure scheduled next week. pt was only mildly exerting himself at noon today. denies soa and denies abd pain. pts registered nurse midwife is dr. windy gao. Timing/Duration: today Quality: pressure, tightness Location: substernal, central Chest Pain Radiation: arm (right) Severity of Pain-Max: mild Severity of Pain-Current: mild Modifying Factors: Improves With: exertion Associated Symptoms: denies symptoms Prior Chest Pain/Cardiac Workup: cardiac cath, heart attack Nitro Today/Relief: no nitro taken today Aspirin Treatment Today: no aspirin today Allergies/Adverse Reactions: Penicillins Allergy (Mild, Verified 11/20/18 15:04) Itching Home Medications: Aspirin 1 tab PO DAILY 12/21/15 [History] Carvedilol 12.5 mg [Coreg 12.5 mg] 1 tab PO DAILY 12/21/15 [History] Clopidogrel Bisulfate 75 mg [PLAVIX 75 MG Tablet] 1 tab PO DAILY 12/21/15 [History] Fenofibrate 67 mg PO HS 12/21/15 [History] Isosorbide Mononitrate [Isosorbide Mononitrate ER] 60 mg PO DAILY 12/21/15 [ History] Losartan/Hydrochlorothiazide [Losartan-Hctz 100-12.5 mg Tab] 1 each PO DAILY [History] [place]-3 Fatty Acids/Fish Oil [Fish Oil 1,000 mg Softgel] 1 ea BID 12/21/15 [ History] Celecoxib 200 mg PO DAILY 05/25/17 [History] Amlodipine Besylate 5 mg [Norvasc 5 mg] 5 mg PO HS 02/26/18 [History] Atorvastatin Calcium [Lipitor] 80 mg PO HS 02/26/18 [History] Metformin HCl 500 mg [Glucophage 500 MG] 250 mg PO BID 02/26/18 [History] Niacin [Niaspan] 1,000 mg PO BID 02/26/18 [History] Nitroglycerin 0.4 mg (Ed) [Nitrostat 0.4 MG (ED)] 0.4 mg SL UD 02/26/18 [ History] Hx Tetanus, Diphtheria Vaccination/Date Given: Yes Hx Influenza Vaccination/Date Given: No Hx Pneumococcal Vaccination/Date Given: No - Review of Systems Constitutional: No Symptoms Eyes: No Symptoms Ears, Nose, & Throat: No Symptoms Respiratory: No Symptoms Cardiac: Chest Pain Abdominal/Gastrointestinal: No Symptoms Genitourinary Symptoms: No Symptoms Musculoskeletal: No Symptoms Skin: No Symptoms Neurological: No Symptoms Psychological: No Symptoms Endocrine: No Symptoms Hematologic/Lymphatic: No Symptoms Immunological/Allergic: No Symptoms All Other Systems: Reviewed and Negative - Past Medical History Pertinent Past Medical History: Yes Neurological History: No Pertinent History ENT History: No Pertinent History Cardiac History: Coronary Artery Disease, High Cholesterol, Hypertension, Myocardial Infarction ([place]) Respiratory History: No Pertinent History Endocrine Medical History: Diabetes Type II Musculoskeletal History: Other GI Medical History: Hernia History: No Pertinent History Psycho-Social History: No Pertinent History Male Reproductive Disorders: No Pertinent History Other Medical History: cardiac stents. back problems- herniated disc - Past Surgical History Past Surgical History: Yes Neuro Surgical History: No Pertinent History Cardiac: Angioplasty, CABG, Cardiac Stent Respiratory: No Pertinent History Gastrointestinal: Hernia Repair Genitourinary: No Pertinent History Musculoskeletal: Orthopedic Surgery Male Surgical History: No Pertinent History Other Surgical History: right shoulder surgery. cyst removed from right shoulder - Social History Smoking Status: Current every day smoker How long have you smoked: 47 years Exposure to second hand smoke: No Drug Use: none Patient Lives Alone: No - Nursing Vital Signs Nursing Vital Signs: Initial Vital Signs Pulse Rate 73 11/20/18 15:13 Respiratory Rate 18 11/20/18 15:13 Blood Pressure 144/97 11/20/18 15:13 O2 Sat by Pulse Oximetry 97 11/20/18 15:13 Pain Scale Pain Intensity 3 - Physical Exam General Appearance: no apparent distress, alert, anxiety Eye Exam: PERRL/EOMI Ears, Nose, Throat Exam: normal ENT inspection, moist mucous membranes Neck Exam: normal inspection, non-tender, supple, full range of motion Respiratory Exam: normal breath sounds, chest tenderness, lungs clear, airway intact, No respiratory distress Cardiovascular Exam: regular rate/rhythm, normal heart sounds, normal peripheral pulses Gastrointestinal/Abdomen Exam: soft, normal bowel sounds, No tenderness, No guarding Rectal Exam: not done Extremity Exam: normal inspection, normal range of motion, No pelvis stable Neurologic Exam: alert, oriented x 3, cooperative, liquor clerk II-XII nml as tested Skin Exam: normal color, warm, dry Lymphatic Exam: No adenopathy SpO2 Interpretation: normal - Course Nursing assessment & vital signs reviewed: Yes EKG Interpreted by Me: RATE (77), Sinus Rhythm, NORMAL AXIS, NORMAL INTERVALS, NORMAL QRS, Non-specific ST Changes (new when compared to ekg dated 10/31/18), Other (when compared to ekg dated 10/31/[address] depression lead II ) Ordered Tests: Active Orders 24 hr Category Date Time Status Mumps Developer STAT Care 11/20/18 15:22 Active EKG-ER Only STAT Care 11/20/18 15:21 Active IV Insertion STAT Care 11/20/18 15:21 Active Pulse Oximetry (ED) STAT Care 11/20/18 15:21 Active CHEST 1 VIEW (PORTABLE) Stat Exams 11/20/18 15:21 Taken CBC W DIFF Stat Lab 11/20/18 15:40 Completed CMP Stat Lab 11/20/18 15:40 Completed D-DIMER QUANTITATION Stat Lab 11/20/18 15:40 Completed NT PRO BNP Stat Lab 11/20/18 15:40 Completed PROTIME WITH INR Stat Lab 11/20/18 15:40 Completed TROPONIN Q3H Lab 11/20/18 15:40 Completed TROPONIN Q3H Lab 11/20/18 18:25 Completed TROPONIN Q3H Lab 11/20/18 21:30 Ordered TROPONIN Q3H Lab 11/21/18 00:30 Ordered TROPONIN Q3H Lab 11/21/18 03:30 Ordered Medication Summary Generic Name Dose Route Start Last Admin Trade Name Freq PRN Reason Stop Dose Admin Sodium Chloride 500 mls @ 50 mls/hr 11/20/18 15:30 11/20/18 15:33 Sodium Chloride 0.9% 500 Ml IV 12/20/18 15:29 50 mls/hr .Q10H NEETA Administration Discontinued Medications Generic Name Dose Route Start Last Admin Trade Name Freq PRN Reason Stop Dose Admin Morphine Sulfate 2 mg 11/20/18 15:21 11/20/18 15:32 Morphine Sulfate 2 Mg Inj IV 11/20/18 15:22 2 mg STAT ONE Administration Morphine Sulfate Confirm 11/20/18 15:28 Morphine Sulfate 2 Mg Inj Administered 11/20/18 15:29 Dose 2 mg .ROUTE .STK-MED ONE Nitroglycerin 0.4 mg 11/20/18 15:21 11/20/18 15:32 Nitrostat 0.4 Mg (Ed) SL 11/20/18 15:22 0.4 mg STAT ONE Administration Nitroglycerin Confirm 11/20/18 15:28 Nitrostat 0.4 Mg (Ed) Administered 11/20/18 15:29 Dose 0.4 mg SL .STK-MED ONE Ondansetron HCl 4 mg 11/20/18 15:21 11/20/18 15:32 Zofran 4 Mg/2 Ml Vial IV 11/20/18 15:22 4 mg STAT ONE Administration Ondansetron HCl Confirm 11/20/18 15:27 Zofran 4 Mg/2 Ml Vial Administered 11/20/18 15:28 Dose 4 mg .ROUTE .STK-MED ONE Lab/Rad Data: Laboratory Result Diagrams 11/20/18 15:40 11/20/18 15:40 Laboratory Results 11/20/18 11/20/18 11/20/18 Range/Units 18:25 15:40 15:40 WBC (4.0-10.5) K/mm3 RBC (4.1-5.6) M/mm3 Hgb (12.5-18.0) gm/dl Hct (42-50) % MCV (78-100) fl MCH (26-32) pg MCHC (32-36) g/dl RDW (11.5-14.0) % Plt Count (150-450) K/mm3 MPV (6-9.5) fl Gran % (36.0-66.0) % Eos # (Auto) (0-0.5) Absolute Lymphs (auto) (1.0-4.6) Absolute Monos (auto) (0.0-1.3) Lymphocytes % (24.0-44.0) % Monocytes % (0.0-12.0) % Eosinophils % (0.00-5.0) % Basophils % (0.0-0.4) % Absolute Granulocytes (1.4-6.9) Basophils # (0-0.4) PT 11.8 (8.83-12.87) SECONDS INR 1.04 (0.8-3.0) D-Dimer 529 H* (215-500) ng/mL Sodium (137-145) mmol/L Potassium (3.5-5.1) mmol/L Chloride (98-107) mmol/L Carbon Dioxide (22-30) mmol/L Anion Gap (5-15) MEQ/L BUN (9-20) mg/dL Creatinine (0.66-1.25) mg/dL Estimated GFR ML/MIN Glucose (74-106) mg/dL Calcium (8.4-10.2) mg/dL Total Bilirubin (0.2-1.3) mg/dL AST (17-59) U/L ALT (0-50) U/L Alkaline Phosphatase (38-126) U/L Troponin I 0.077 H* < 0.012 (0.000-0.034) ng/mL NT-Pro-B Natriuret Pep (0-900) pg/mL Serum Total Protein (6.3-8.2) g/dL Albumin (3.5-5.0) g/dL 11/20/18 11/20/18 Range/Units 15:40 15:40 WBC 10.0 (4.0-10.5) K/mm3 RBC 5.70 H (4.1-5.6) M/mm3 Hgb 16.5 (12.5-18.0) gm/dl Hct 46.9 (42-50) % MCV 82.3 (78-100) fl MCH 28.9 (26-32) pg MCHC 35.2 (32-36) g/dl RDW 14.1 H (11.5-14.0) % Plt Count 213 (150-450) K/mm3 MPV 9.8 H (6-9.5) fl Gran % 72.3 H (36.0-66.0) % Eos # (Auto) 0.19 (0-0.5) Absolute Lymphs (auto) 1.92 (1.0-4.6) Absolute Monos (auto) 0.63 (0.0-1.3) Lymphocytes % 19.1 L (24.0-44.0) % Monocytes % 6.3 (0.0-12.0) % Eosinophils % 1.9 (0.00-5.0) % Basophils % 0.4 (0.0-0.4) % Absolute Granulocytes 7.26 H (1.4-6.9) Basophils # 0.04 (0-0.4) PT (8.83-12.87) SECONDS INR (0.8-3.0) D-Dimer (215-500) ng/mL Sodium 138 (137-145) mmol/L Potassium 3.8 (3.5-5.1) mmol/L Chloride 102 (98-107) mmol/L Carbon Dioxide 27 (22-30) mmol/L Anion Gap 12.4 (5-15) MEQ/L BUN 21 H (9-20) mg/dL Creatinine 0.89 (0.66-1.25) mg/dL Estimated GFR > 60.0 ML/MIN Glucose 159 H (74-106) mg/dL Calcium 9.8 (8.4-10.2) mg/dL Total Bilirubin 0.60 (0.2-1.3) mg/dL AST 21 (17-59) U/L ALT 18 (0-50) U/L Alkaline Phosphatase 60 (38-126) U/L Troponin I (0.000-0.034) ng/mL NT-Pro-B Natriuret Pep 108 (0-900) pg/mL Serum Total Protein 6.6 (6.3-8.2) g/dL Albumin 3.6 (3.5-5.0) g/dL - Progress Progress: improved, re-examined Air Movement: good Progress Note: 11/20/18 17:26 cxr-no acute process 11/20/18 19:40 spoke with [facility] transfer center([facility]). Dr. Zaidi reviewed case and he accepts pt in transfer to ED. Blood Culture(s) Obtained: No Antibiotics given: No Counseled pt/family regarding: lab results, diagnosis, need for follow-up, rad results - Departure Departure Disposition: Transfer Clinical Impression: Chest pain, Elevated troponin Condition: Stable Critical Care Time: Yes Critical Care Time(excluding separately billable procedures): 30-74 minutes Referrals: CYRIL DIAZ [Primary Care Provider] -
[2018-11-20] MEDS ORDERED: Zofran 4 MG/2 ML VIAL ONE (15:27)
[2018-11-20] MEDS ORDERED: MORPHINE SULFATE 2 MG INJ ONE (15:28)
[2018-11-20] MEDS ORDERED: Sodium Chloride 0.9% 500 ML 500 ML IV ONE (15:28)
[2018-11-20] MEDS ORDERED: Sodium Chloride 0.9% 500 ML 500 ML IV SCH (15:30)
[2018-11-20 15:42] LABS: BASOPHIL % 0.4 % (0.0-0.4); Basophil (Absolute #) 0.04 (0-0.4); Eosinophil % 1.9 % (0.00-5.0); Eosinophil (Absolute #) 0.19 (0-0.5); Granulocyte Absolute (ANC) 7.26 (1.4-6.9); Granulocytes % 72.3 % (36.0-66.0); Hematocrit 46.9 % (42-50); Hemoglobin 16.5 gm/dl (12.5-18.0); Lymphocyte (Absolute #) 1.92 (1.0-4.6); Lymphocytes % 19.1 % (24.0-44.0); Mean Cell Volume 82.3 fl (78-100); Mean Corpuscular Hemoglobin 28.9 pg (26-32); Mean Corpuscular Hgb Concent. 35.2 g/dl (32-36); Mean Platelet Volume 9.8 fl (6-9.5); Monocyte (Absolute #) 0.63 (0.0-1.3); Monocytes % 6.3 % (0.0-12.0); Platelet Count 213 K/mm3 (150-450); Red Cell Distribution Width 14.1 % (11.5-14.0)
[2018-11-20 15:54] LABS: INR 1.04 (0.8-3.0); PROTIME 11.8 SECONDS (8.83-12.87)
[2018-11-20 16:07] LABS: ALBUMIN 3.6 g/dL (3.5-5.0); ALKALINE PHOSPHATASE 60 U/L (38-126); ANION GAP 12.4 MEQ/L (5-15); BLOOD UREA NITROGEN 21 mg/dL (9-20); CHLORIDE 102 mmol/L (98-107); Calcium 9.8 mg/dL (8.4-10.2); Carbon Dioxide 27 mmol/L (22-30); Creatinine 1 0.89 mg/dL (0.66-1.25); Glucose 159 mg/dL (74-106); NT PRO BNP 108 pg/mL (0-900); Potassium 3.8 mmol/L (3.5-5.1); SGOT/AST 21 U/L (17-59); SGPT/ALT 18 U/L (0-50); SODIUM 138 mmol/L (137-145); Total Protein 6.6 g/dL (6.3-8.2)
[2018-11-20 19:29] VITALS: PULSE 73; O2SAT 96
[2018-11-20] MEDS ORDERED: BABY ASPIRIN 81 MG CHEW PO ONE (19:47)
[2018-11-20] MEDS ORDERED: MORPHINE SULFATE 4 MG INJ IV ONE (19:47)
[2018-11-20] MEDS ORDERED: MORPHINE SULFATE 4 MG INJ ONE (19:54)
[2018-11-20] MEDS ORDERED: BABY ASPIRIN 81 MG CHEW ONE (19:54)
[2018-11-20 20:28] VITALS: BP 135/96
--- NOTE | 2018-11-21 08:31 | XRAY ---
Indication: Cough. Comparison: May 10, 2018. Portable chest remains clear. Heart and mediastinal structures within normal limits again with CABG surgery and tortuous descending aorta. Bony thorax intact again with mild degenerative changes and distal right clavicle resection. No new/acute findings. Impression: Stable nonacute chest with chronic features.
== END 2018-11-20 20:42 | disposition short-term general hospital (02) ==
LOC: ED 15:02
DX: R07.89 Other chest pain (principal); R74.8 Abnormal levels of other serum enzymes
CPT/HCPCS: 36000; 36415; 71045; 80053; 83880; 84484; 85025; 85379; 85610; 93005; 93041; 96360; 96361; 96374; 96375; 96376; 99285; 99291; J2270; J2405; A9270-GY